=== PATIENT | male | born 1935 | race Caucasian/White ===

== ENCOUNTER 2025-06-05 09:39 | Inpatient (IN) | payer OTHER, MEDICARE ==
[~2025-06-05] VITALS: Ht 177.8 cm; Wt 85.0 kg
--- NOTE | 2025-06-05 09:47 | Physician Documentation ---
History of Present Illness ~ General Stated Complaint: ABNORMAL LABS Time Seen by MD: 09:40 History of Present Illness Initial Comments This is a 89-year-old gentleman who is currently in re-evaluating rehab convalescing from cellulitis of his hip who was sent to us for abnormal laboratory studies. Evidently at some point recently his creatinine was four which is a major change from baseline and his vancomycin trough was 50. Last dose of vancomycin is unknown. True baseline is unknown. Per report from EMS the patient is on fluid restriction. The cause or reason for the fluid restriction is unknown. At the time of my examination the gentleman has no somatic complaints. He denies any pain whatsoever. The gentleman has a valid POLST form indicating that he is do not intubate, do not resuscitate, comfort measures only. However I had discussed his case with his power of litigation attorney associate, daughter Dena, who indicates that she would prefer to obviate the POLST form and do the workup to establish the causation of his acute kidney injury. Medication Reconciliation Allergies: Coded Allergies: No Known Allergies (Unverified , 06/05/25) Review of Systems ROS 10 point review of systems was performed and unless noted above in HPI is negative for acute process/complaint. Physical Exam Physical Exam Physical Exam GENERAL: Awake, alert, oriented self and place, GCS 14v4, no apparent distress, non-toxic appearing, answers questions to the best of his ability, follows commands appropriately. Examined immediately upon arrival in bed 8. HEENT: Atraumatic, normocephalic, pupils equal, extraocular muscles intact, sclerae anicteric, mucus membranes moist, oropharynx is clear, no stridor. NECK: supple, full active range of motion, trachea midline, no thyromegaly, no lymphadenopathy, no JVD. CARDIOVASCULAR: regular rate/rhythm, no murmurs/gallops/rubs, Pulses are 2+ in all extremities and symmetric. Capillary refill less than 2 seconds. PULMONARY: Nonlabored, good air movement ,no respiratory distress, speaking in full sentences, clear to auscultation bilaterally, no wheezing, no ronchi, no rales, no accessory muscle use. GASTROINTESTINAL: Soft, non-tender, non-distended, normal active bowel sounds, no organomegaly, no pulsatile masses, no CVA tenderness. NEUROLOGIC: Lucid with normal mental status. Normal facial symmetry. Moves all extremities symmetrically and with purpose. No truncal ataxia. Speech is fluid without evidence of dysarthria or aphasia, no focal deficits appreciated. MUSCULOSKELETAL: There is full range of motion of all extremities. There is no joint pain or joint swelling or joint erythema. There is no muscle pain or tenderness or swelling. EXTREMITIES: warm, well-perfused, no cyanosis, no clubbing, no edema, no acute deformities. Skin: warm, dry, no rashes or lesions, no jaundice, no petechiae orpurpura. No ecchymosis. PSYCHIATRIC: Normal affect, normal insight, normal concentration. Focused exam: [] Right upper extremity PICC line noted, clean, dry, intact Progress Results/Orders Results/Orders Orders - SUNNY GRIGSBY DO CK (06/05/25 09:40) C-Reactive Protein (06/05/25 09:40) PHOS (06/05/25 09:40) Culture Blood (06/05/25 09:40) Urinalysis, Cult If Indicated (06/05/25 09:40) Chest,Single View (06/05/25 10:18) PBNP (06/05/25 09:40) MG (06/05/25 09:40) CMP (06/05/25 09:40) Hs Troponin I W Calculations (06/05/25 11:40) Hs Troponin I W Calculations (06/05/25 12:40) Vancomycin,Trough (06/05/25 09:40) Completed Orders - SUNNY GRIGSBY DO Electrocardiogram (06/05/25 09:40) Cbc/Diff (06/05/25 09:40) ESR (06/05/25 09:40) Chest,Single View (06/05/25 10:18) Hs Troponin I W Calculations (06/05/25 09:40) Lacticsepsis (06/05/25 09:40) Vital Signs 06/05/25 06/05/25 06/05/25 09:40 09:53 10:40 Temp 97.1 Pulse 75 66 Resp 16 21 B/P (MAP) 149/79 136/76 (96) Pulse Ox 97 96 O2 Flow Rate 0 0 Laboratory Tests Test 06/05/25 10:00 06/05/25 10:05 Lactic Acid Level 1.1 White Blood Count 14.4 H Red Blood Count 4.07 L Hemoglobin 12.6 L Hematocrit 37.8 L Mean Corpuscular Volume 92.7 Mean Corpuscular Hemoglobin 30.8 Mean Corpuscular Hemoglobin Concent 33.3 Red Cell Distribution Width 15.0 H Platelet Count 363 Mean Platelet Volume 8.1 Neutrophils (%) (Auto) 61.9 Lymphocytes (%) (Auto) 21.9 Monocytes (%) (Auto) 10.9 Eosinophils (%) (Auto) 4.4 Basophils (%) (Auto) 0.9 Neutrophils # (Auto) 8.9 H Lymphocytes # (Auto) 3.1 Monocytes # (Auto) 1.6 H Eosinophils # (Auto) 0.6 Basophils # (Auto) 0.1 CBC Comment Erythrocyte Sedimentation Rate 21 H Sodium Level 130 L Potassium Level 5.9 H Chloride Level 99 Carbon Dioxide Level 21.8 L Anion Gap 9 Blood Urea Nitrogen 102 H Creatinine 5.71 H Estimated GFR/1.73 m2 9 BUN/Creatinine Ratio 17.9 Glucose Level 129 H Calcium Level 8.4 L Phosphorus Level 5.9 H Magnesium Level 2.2 Total Bilirubin 0.5 Aspartate Amino Transf (AST/SGOT) 24 Alanine Aminotransferase (ALT/SGPT) 35 Alkaline Phosphatase 193 H Total Creatine Kinase 16 L Troponin I High Sensitivity 6 C-Reactive Protein 3.53 H Pro-B-Type Natriuretic Peptide 1179 H Total Protein 6.1 L Albumin 1.9 L Globulin 4.2 Albumin/Globulin Ratio 0.5 L Chemistry Comments EKG/XRAY/CT/US/VASC/MRI EKG : Additional Comment EKG was obtained and interpreted by myself shows sinus rhythm of 78, normal ME interval, wide QRS with a right bundle, no QT prolongation, normal axis, no STEMI. Medical Decision Making Differential Diagnosis Facility Status: ED Holds, RME process The plan was discussed with the patient, who demonstrates clear understanding of the plan and is in agreement with the plan unless otherwise noted in the chart. All questions have been answered, all concerns were addressed unless otherwise documented. I was available throughout their ED stay for frequent reassessment and questions. Differential Diagnoses (considered and possible or likely): [The gentleman is elevated vancomycin trough is most likely related to his kidney injury, his kidney injuries most likely related to fluid restrictions instituted by the skilled" nursing facility. Additionally on differential diagnosis dehydration, electrolyte derangement, urinary tract infection, pneumonia, occult bacteremia, sepsis] ??Differential Diagnoses (considered and unlikely, not requiring evaluation currently): [The gentleman does not appear to be altered, has no somatic complaints] MDM Data Please see HPI for the following: Independent Historians and external Records Review. Historian: [Patient] Independent Historians: ?[EMS, record review] Medication Management: [Reviewed medication list] Social History and determinants: [Reviewed] Please see the body of the note for the following: Any independent interpretations of ECG, imaging studies. All vitals signs/haemodynamics, ordered tests were independently reviewed and interpreted by myself. Nursing triage complaint and vitals reviewed, additional nursing notes were reviewed as available and I agree unless otherwise noted or documented in contradiction in the chart Vital Signs: Independently reviewed Labs: Independently interpreted Imaging: Independently interpreted Old Medical Records: Independently reviewed, see HPI for relevant summary and information Pulse Oximetry: [95%] interpreted as [normal on room air] by me [Ammunition Assembly Laborer: [Regular Rate, Regular rhythm, no ectopy, NSR] reviewed and interpreted by me] Additionally notably showing: [Hemodynamics reviewed. The gentleman is not febrile, not tachycardic, no evidence of hypotension respiratory distress. Laboratory studies notable for mild leukocytosis, likely reactive, no anemia, normal platelets, no neutrophilic predominance. ESR is minimally elevated at 21. Chemistry was obtained showing hyperkalemia of 5.9, severe kidney injury with worsening creatinine of 5.7 and BUN of 102. CRP is elevated. BNP is also elevated concerning for CHF exacerbation although patient does not appear to be on any diuretics according has a med list. Troponin is negative. Vancomycin levels of pending. Chest x-ray shows small pleural effusions bilaterally.] Tests considered but not ordered include: [Echo cardiogram can be done on the inpatient basis] Social Determinants of Health Impact: Patient was evaluated in [facility] [place] to healthcare due to below par ratio of patient to medical providers. [] Comorbid Conditions Impacting Present Evaluation and Care/Treatment: [No CHF was reported but clearly elevation of BNP and his bilateral upper extremity edema is concerning, chronic antibiotic therapy with the nephrotoxic agents] Management Discussions with other Healthcare Providers: [Hospitalist regarding admission] Treatment and Disposition Medication Management (Given or considered): []. See EMR for details Consideration for Hospitalization/Escalation/Deescalation of Care: Admission for observation has been considered, and is necessary for further management of his acute kidney injury, CHF exacerbation as per his daughter who withdrew comfort measures and made him selective treatment. ?ED Course:?[No clinical deterioration] ?Shared decision making:?[] Code status: Do not intubate, do not resuscitate, selective treatment her daughter. Please see the full Electronic Medical Record for full details of nursing documentation, medications list, other records of complete past medical history and conditions, vital signs, laboratory studies, and any radiologic study interpretations by radiologists. Portions of this note were completed using [employer] dictation software and as a result there may exist minor errors in spelling. I have reviewed elements of past family and social history and agree as included in note. Departure Disposition: 09 ADMITTED INPATIENT (EKG busy) Impression: Primary Impression: Acute kidney injury Additional Impressions: Acute exacerbation of congestive heart failure Vancomycin poisoning Hyperkalemia Condition: Guarded Referrals: NO PRIMARY CARE PROVIDER (PCP) Critical Care Note Critical Care Note CRITICAL CARE TIME: [45 ] minutes Treatments/Evaluations: Close monitoring and treatment of unstable vital signs, cardiorespiratory, and neurologic status, while maintaining tight balance of fluid, respiratory, and cardiac interventions. This time includes discussing the case with the patient and the patients family. This time does not include all procedures stated elsewhere in this record. This time also includes reviewing old records, labs and radiological studies. This time includes examining and re- examining the patient. Additionally, this time also includes arranging care with admitting and consulting physicians. Signature Scribe Signature: No scribe Attestation: This note accurately reflects clinical decisions, work performed by myself, Sunny Grigsby, SUNNY PEDRO DO Jun 05, 2025 09:47
--- NOTE | 2025-06-05 10:07 | ELECTROCARDIOGRAPH REPORT ---
[facility] Test Date: 2025-06-05 Test Time: 10:05:26 Pat Name: MARZENA LIU Department: [facility]-ER Patient ID: [id number] Room: Gender: M Machinery Mechanic: : [id number] Requested By: YEFRI GRIGSBY Order Number: [id number] Reading MD: Measurements Intervals [place] Rate: 75 P: 7 MN: 172 QRS: 65 QRSD: 139 T: 69 QT: 407 QTc: 455 Interpretive Statements Sinus rhythm Sinus pause Right bundle branch block Please click the below link to view image of tracing.
[2025-06-05 10:19] LABS: MEAN PLATELET VOLUME 8.1 FL (7.4-10.4); RED CELL DISTRIBUTION WIDTH 15.0 % (11.5-14.5)
--- NOTE | 2025-06-05 10:29 | RADIOLOGY REPORT ---
EXAM: DI CHEST,SINGLE VIEW HISTORY: sob COMPARISON: None TECHNIQUE: Portable upright AP view of the chest was performed. FINDINGS: There is a right upper extremity PICC line with its tip in the lower SVC. There is blunting of the co stophrenic angles. There is central peribronchial thickening. No pneumothorax, consolidative infiltr ates, or pulmonary edema. The heart is not enlarged. The humeral heads are high-riding and abuts the undersurfaces of the acromions. IMPRESSION: 1. Reactive airways disease. 2. Blunting of the costophrenic angles may be due to scarring or small pleural effusions. 3. Secondary evidence of significant bilateral rotator cuff tendinopathy.
[2025-06-05 10:38] LABS: CREATININE 5.71 MG/DL (0.60-1.10); TOTAL CARBON DIOXIDE 21.8 MMOL/L (24-32); eCRCL 9 ML/MIN; eGFR 9 ML/MIN
[2025-06-05 10:47] LABS: PHOSPHORUS 5.9 MG/DL (2.3-4.5); PRO BRAIN NATRIURETIC PEPTIDE 1179 PG/ML (0-450)
[2025-06-05 12:47] LABS: LEUKOCYTE ESTERASE ,URINE NEGATIVE (Neg); NITRITES, URINE NEGATIVE (Neg); OCCULT BLOOD,URINE MODERATE (Neg)
[2025-06-05 12:57] LABS: UA COLLECTION TYPE NON-SPECIFIED
[2025-06-05 12:58] LABS: MUCUS STRANDS NONE SEEN /LPF (Neg); SQUAMOUS EPITHELIAL CELL,UR NONE SEEN /LPF (FEW)
[2025-06-05] MEDS: dextrose 50%-water 50ml dispensing syringe IV ONE (13:21)
[2025-06-05] MEDS: insulin regular, human 10 units/0.1 ml syringe IV ONE (13:23)
[2025-06-05] MEDS: SODIUM ZIRCONIUM CYCLOSILICATE 10 GM POWD.PACK PO SCH (13:52)
[2025-06-05] MEDS ORDERED: morphine 10mg/0.5ml (conc. morphine) oral syringe PO PRN (14:40)
[2025-06-05] MEDS ORDERED: morphine 10mg/ml inj. IV PRN (14:40)
[2025-06-05] MEDS: albuterol 2.5 MG/3 ML nebule NEB ONE (15:00)
[2025-06-05 18:00] VITALS: BP 160/100; PULSE 107; RESP 19; TEMP 97.4; O2SAT 96
--- NOTE | 2025-06-05 18:09 | HISTORY AND PHYSICAL-Residence ---
History & Physical Providers to Resident Creating Document: TIFFANY FERREIRA, MATT ~ History of Present Illness Reason for Admit\Complaint: AIDA History of Present Illness An 89-year-old male with a medical background of type 2 diabetes mellitus, deep vein thrombosis (DVT), osteomyelitis, a chronic heel ulcer on the right heel, and hypertension arrived at the emergency department for further evaluation of his abnormal lab results at [facility]. 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 Consequently, all relevant history was obtained from his power of managing attorney, daughter Dena, who can be reached at [phone]. Dena provided a comprehensive history, stating that the patient had experienced a fall in March 2025, resulting in a hip fracture that was surgically repaired on April 02, 2025. Following the procedure, he was transferred to a rehabilitation center for 20 days of physical therapy. After returning home, he accidentally bumped his heel, leading to the development of an initial ulcer, prompting a visit to the doctor at [facility]. There, further treatment was initiated, and cultures from the heel indicated MRSA; she was uncertain if blood cultures were also taken. He spent 14 days at [facility] before being moved to [facility], where he was receiving vancomycin intravenously. His condition deteriorated, and subsequent lab tests at [facility] indicated his creatinine level had risen to approximately 4, a decline from his prior readings. The patient had a POLST form indicating do not intubate, do not resuscitate, and comfort care measures. However, upon further discussion, the daughter expressed that although she preferred comfort care, she specifically wanted vancomycin to ensure he would not pose a contagion risk to other patients. Nevertheless, as the power of managing attorney, she understands that the patient would not benefit from additional treatment for his acute kidney injury (AIDA) or other abnormal lab results and decided to proceed with comfort care during his hospital stay. The patients severe dementia prevents him from comprehending his current situation, so we consulted his daughter and updated his code status to DNR with comfort care. Consequently, we will not treat his AIDA or manage his wound with antibiotics. However, we will arrange for wound care during this admission and initiate treatment with Ativan and morphine. 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 All negative except for pertinent positive HPI. Exam Vitals: Vital Signs Date Time Temp Pulse Resp B/P (MAP) Pulse Ox O2 Delivery O2 Flow Rate FiO2 06/05/25 14:45 76 20 158/96 (116) 94 0 06/05/25 09:40 97.1 General: Severely demented, alert and awake HEENT: Atraumatic, normocephalic, EOMI, anicteric sclera ; pink conjunctiva Neck: Trachea midline. Supple, full range of motion, no JVD Cardiac: Regular rhythm, regular rate with no murmurs all over the precordium. Respiratory: Equal breath sounds bilaterally, no tachypnea, no wheezing ,rub or rales, Chest wall is symmetric and without deformity. 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 However, upon further discussion, the daughter expressed that although she preferred comfort care, she specifically wanted vancomycin to ensure he would not pose a contagion risk to other patients. Nevertheless, as the power of managing attorney, she understands that the patient would not benefit from additional treatment for his acute kidney injury (AIDA) or other abnormal lab results and decided to proceed with comfort care during his hospital stay. The patients severe dementia prevents him from comprehending his current situation, so we consulted his daughter and updated his code status to DNR with comfort care. Consequently, we will not treat his AIDA or manage his wound with antibiotics. Wound Care will be consulted for further managed Comfort care measures with: Ativan IV 2 mg q.4h p.r.n. and morphine IV 1 H p.r.n. Code Status: DNR with comfort care Tiffany Ferreira MD Internal Medicine Resident, PGY-2 Date of Service: Jun 05, 2025 Billing Provider: NAY ISABEL MD,TIFFANY, RES Jun 05, 2025 18:09
[2025-06-05] MEDS: docusate sod 100mg capsule PO SCH (19:45)
[2025-06-05 20:00] VITALS: RESP 19; O2SAT 96
[2025-06-05] MEDS ORDERED: ZINC220C12 PO (23:53)
[2025-06-05] MEDS ORDERED: MAGN400O6 PO (23:53)
[2025-06-05] MEDS ORDERED: BISA10SU60 RC (23:53)
[2025-06-05] MEDS ORDERED: INSU200I (23:53)
[2025-06-05] MEDS ORDERED: VANC1VIA38 IV (23:53)
[2025-06-05] MEDS ORDERED: SODI1TAB2 PO (23:53)
[2025-06-05] MEDS ORDERED: SACC250C PO (23:53)
[2025-06-05] MEDS ORDERED: APIX2.5T PO (23:53)
[2025-06-05] MEDS ORDERED: AMLO-140 PO (23:53)
[2025-06-05] MEDS ORDERED: LANTUS SUBCUT (23:53)
[2025-06-05] MEDS ORDERED: NA P230E (23:53)
[2025-06-05] MEDS ORDERED: VITC500T PO (23:53)
[2025-06-06 06:00] VITALS: BP 136/77; PULSE 68; RESP 19; TEMP 97.6; O2SAT 94
[2025-06-06 06:56] VITALS: BP_SYST 107; BP_SYST 136; BP_DIAS 56; BP_DIAS 77; PULSE 68; PULSE 80; RESP 19; RESP 9; TEMP 97; TEMP 97.6; O2SAT 94; O2SAT 98
--- NOTE | 2025-06-06 17:28 | PROGRESS NOTE- Residence ---
Progress Note - Resident Providers to CC Resident Creating Document: TIFFANY FERREIRA RES ~ Antibiotic Timeout Antibiotic Ordered?: No Subjective Patient was seen and examined at bedside, did not have any medical complaints. No acute overnight symptoms. Objective Vital Signs Date Time Temp Pulse Resp B/P (MAP) Pulse Ox O2 Delivery O2 Flow Rate FiO2 06/06/25 10:36 Room Air 0.0 06/06/25 06:00 97.6 68 19 136/77 (96) 94 Result Diagram: 06/05/25 1005 06/05/25 1005 Severely demented, alert and awake HEENT: Atraumatic, normocephalic, EOMI, anicteric sclera ; pink conjunctiva Neck: Trachea midline. Supple, full range of motion, no JVD Cardiac: Regular rhythm, regular rate with no murmurs all over the precordium. Respiratory: Equal breath sounds bilaterally, no tachypnea, no wheezing ,rub or rales, Chest wall is symmetric and without deformity. 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 However, upon further discussion, the daughter expressed that although she preferred comfort care, she specifically wanted vancomycin to ensure he would not pose a contagion risk to other patients. Nevertheless, as the power of business process analyst, she understands that the patient would not benefit from additional treatment for his acute kidney injury (AIDA) or other abnormal lab results and decided to proceed with comfort care during his hospital stay. The patients severe dementia prevents him from comprehending his current situation, so we consulted his daughter and updated his code status to DNR with comfort care. Consequently, we will not treat his AIDA or manage his wound with antibiotics. Wound Care consulted Comfort care measures with: Ativan IV 2 mg q.4h p.r.n. and morphine IV 1 H p.r.n. Code Status: DNR with comfort care Tiffany Ferreira MD Internal Medicine Resident, PGY-2 Date of Service: Jun 06, 2025 Billing Provider: NAY ISABEL MD,TIFFANY, RES Jun 06, 2025 17:28
[2025-06-06 20:00] VITALS: RESP 15; O2SAT 94
[2025-06-06 22:00] VITALS: BP 144/78; PULSE 72; RESP 15; TEMP 96.9; O2SAT 94
[2025-06-07 07:04] VITALS: BP 152/70; PULSE 68; RESP 19; TEMP 96.9; O2SAT 99
[2025-06-07 18:00] VITALS: BP 143/67; PULSE 75; RESP 28; TEMP 98.2; O2SAT 93
--- NOTE | 2025-06-07 19:16 | PROGRESS NOTE- Residence ---
Progress Note - Resident Providers to CC Resident Creating Document: TIFFANY FERREIRA RES ~ Antibiotic Timeout Antibiotic Ordered?: No Subjective Patient was seen and examined at bedside, did not have any medical complaints. No acute overnight symptoms. Objective Vital Signs Date Time Temp Pulse Resp B/P (MAP) Pulse Ox O2 Delivery O2 Flow Rate FiO2 06/07/25 08:30 Room Air 0.0 06/07/25 07:04 96.9 68 19 152/70 (97) 99 Result Diagram: 06/05/25 1005 06/05/25 1005 Severely demented, alert and awake HEENT: Atraumatic, normocephalic, EOMI, anicteric sclera ; pink conjunctiva Neck: Trachea midline. Supple, full range of motion, no JVD Cardiac: Regular rhythm, regular rate with no murmurs all over the precordium. Respiratory: Equal breath sounds bilaterally, no tachypnea, no wheezing ,rub or rales, Chest wall is symmetric and without deformity. 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 However, upon further discussion, the daughter expressed that although she preferred comfort care, she specifically wanted vancomycin to ensure he would not pose a contagion risk to other patients. Nevertheless, as the power of assistant city attorney, she understands that the patient would not benefit from additional treatment for his acute kidney injury (AIDA) or other abnormal lab results and decided to proceed with comfort care during his hospital stay. The patients severe dementia prevents him from comprehending his current situation, so we consulted his daughter and updated his code status to DNR with comfort care. Consequently, we will not treat his AIDA or manage his wound with antibiotics. Wound Care consulted Comfort care measures with: Ativan IV 2 mg q.4h p.r.n. and morphine IV 1 H p.r.n. Code Status: DNR with comfort care; patient will be discharged to [facility] tomorrow Tiffany Ferreira MD Internal Medicine Resident, PGY-2 Date of Service: Jun 07, 2025 Billing Provider: NAY ISABEL MD,TIFFANY, RES Jun 07, 2025 19:16
[2025-06-07 20:00] VITALS: RESP 28; O2SAT 93
[2025-06-08 08:00] VITALS: RESP 16; O2SAT 98
--- NOTE | 2025-06-08 16:30 | DISCHARGE SUMMARY-Residence ---
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 Consequently, all relevant history was obtained from his power of real estate associate attorney, daughter Dena, who can be reached at [phone]. Dena provided a comprehensive history, stating that the patient had experienced a fall in March 2025, resulting in a hip fracture that was surgically repaired on April 02, 2025. Following the procedure, he was transferred to a rehabilitation center for 20 days of physical therapy. After returning home, he accidentally bumped his heel, leading to the development of an initial ulcer, prompting a visit to the doctor at [facility]. There, further treatment was initiated, and cultures from the heel indicated MRSA; she was uncertain if blood cultures were also taken. He spent 14 days at [facility] before being moved to [facility], where he was receiving vancomycin intravenously. His condition deteriorated, and subsequent lab tests at [facility] indicated his c reatinine level had risen to approximately 4, a decline from his prior readings. The patient had a POLST form indicating do not intubate, do not resuscitate, and comfort care measures. However, upon further discussion, the daughter expressed that although she preferred comfort care, she specifically wanted vancomycin to ensure he would not pose a contagion risk to other patients. Nevertheless, as the power of real estate associate attorney, she understands that the patient would not benefit from additional treatment for his acute kidney injury (AIDA) or other abnormal lab results and decided to proceed with comfort care during his hospital stay. The patients severe dementia prevents him from comprehending his current situation, so we consulted his daughter and updated his code status to DNR with comfort care. Consequently, we will not treat his AIDA or manage his wound with antibiotics. However, we will arrange for wound care during this admission and initiate treatment with Ativan and morphine. Hospital course: On admission, he was also noted to have leukocytosis, acute kidney injury, hyponatremia, metabolic acidosis, and small bilateral pleural effusions. The patient was awake and alert but unable to meaningfully participate in care discussions due to advanced dementia. His POLST form indicated a DNR/DNI status with a preference for comfort care. After a detailed discussion with his daughter, who serves as his healthcare power of real estate associate attorney, it was decided to proceed with comfort-focused management during his h ospitalization. Although she requested continuation of vancomycin briefly to reduce potential contagion risk to others, she agreed that no further active treatment would be pursued for his AIDA or abnormal lab values. Wound care was consulted for the chronic heel ulcer, but no antibiotic therapy will be continued. The patient remained stable during hospitalization without acute even ts. He had no overnight complaints, and vital signs remained stable. Comfort measures were initiated, including Ativan and morphine as needed for agitation or discomfort. He is stable for discharge to [facility] under hospice-level care. Physical examination today: Severely demented, alert and awake HEENT: Atraumatic, normocephalic, EOMI, anicteric sclera ; pink conjunctiva Neck: Trachea midline. Supple, full range of motion, no JVD Cardiac: Regular rhythm, regular rate with no murmurs all over the precordium. Respiratory: Equal breath sounds bilaterally, no tachypnea, no wheezing ,rub or rales, Chest wall is symmetric and without deformity. Gastrointestinal: Abdomen symmetric, non-distended, soft, non-tender, normal bowel sounds x4 quadrant, normoactive, no hepatosplenomegaly Musculoskeletal: Right heel: Dressing in place Neurological: Could not be performed Skin: Warm and dry Advise on discharge: Rehabilitation MD to resume care Continue comfort care measures Continue medications as prescribed *Problems/Diagnosis: (1) Hyperkalemia Status: Acute (2) Vancomycin poisoning Status: Acute (3) Acute exacerbation of congestive heart failure Status: Acute (4) Acute kidney injury Status: Acute Total Time Spent on D/C: Up to 30 Minutes Date of Service: Jun 08, 2025 Billing Provider: NAY ISABEL MD, GAURAV, RES Jun 08, 2025 16:30
== END 2025-06-08 14:49 | DRG 918 ==
LOC: ER 09:40 → ED HOLD 12:06 → SUR 3N 17:10
PROVIDERS: ADMIT Family Medicine; ATTEND Family Medicine
DX: T36.8X1A Poisoning by other systemic antibiotics, accidental (unintentional), initial encounter (principal); M86.8X7 Other osteomyelitis, ankle and foot; N17.9 Acute kidney failure, unspecified; E87.1 Hypo-osmolality and hyponatremia; E87.20 Acidosis, unspecified; L97.418 Non-pressure chronic ulcer of right heel and midfoot with other specified severity; D72.829 Elevated white blood cell count, unspecified; I11.0 Hypertensive heart disease with heart failure; Z66 Do not resuscitate; E11.69 Type 2 diabetes mellitus with other specified complication; E87.5 Hyperkalemia; I50.9 Heart failure, unspecified; Y92.89 Other specified places as the place of occurrence of the external cause; Z51.5 Encounter for palliative care
CPT/HCPCS: 36415; 71045; 80053; 80202; 81001; 82550; 83605; 83735; 83880; 84100; 84484; 85025; 85651; 86140; 87040; 87081; 93005; 96374; 96375; 99291; A6212; A6213; A6258; A6446; A6449; A6590; C1758; G0378; J1815; J1938; J3490